=== PATIENT | male | born 1990 | race Two or more races ===

== ENCOUNTER 2018-04-21 07:08 | Inpatient (IN) | payer OTHER ==
[~2018-04-21] VITALS: Ht 157.5 cm; Wt 69.0 kg
[2018-04-21 07:16] VITALS: Ht 157.5 cm; Wt 69.0 kg
[2018-04-21 08:17] LABS: BASOPHIL % 0.2 % (0-2); PLATELET COUNT 213 x10^3mcL (130-400); RED CELL DISTRIBUTION WIDTH 12.4 % (11.5-14.5)
[2018-04-21 08:48] LABS: CARBON DIOXIDE 29.8 mmol/L (21-32); CHLORIDE SERUM 103 mmol/L (98-107); CREATININE SERUM 0.9 mg/dL (0.7-1.3); GFR1 > 60 mL/min; GLUCOSE SERUM 106 mg/dL (74-106); POTASSIUM SERUM 4.9 mmol/L (3.5-5.1); SODIUM SERUM 139 mmol/L (136-145)
[2018-04-21 08:53] LABS: ALBUMIN 3.9 g/dL (3.4-5.0); ALKALINE PHOSPHATASE 94 U/L (46-116); ALT/SGPT 28 U/L (16-63); AST/SGOT 14 U/L (15-37); BILIRUBIN TOTAL 0.51 mg/dL (0.20-1.00); CHOLESTEROL 181 mg/dL (<200); TOTAL PROTEIN, SERUM 7.8 g/dL (6.4-8.2)
[2018-04-21 13:06] VITALS: BP 142/88
[2018-04-21 13:13] LABS: CHOLESTEROL/HDL RATIO 4.2; MAGNESIUM 1.9 mg/dL (1.8-2.4); PHOSPHOROUS 3.7 mg/dL (2.5-4.9)
[2018-04-21 13:17] LABS: T3 TOTAL 1.1 ng/mL
[2018-04-21 13:21] LABS: FREE T4 0.97 ng/dL (0.76-1.46); FREE THYROXINE INDEX 2.4 ug/dL (1.4-4.5); T4(THYROXINE) 6.5 ug/dL (4.7-13.3)
[2018-04-21 14:25] LABS: microscopic required? NO
[2018-04-21 14:51] LABS: UA SPECIFIC GRAVITY <=1.005 (1.005-1.035); urine erythrocyte NEGATIVE (NEGATIVE)
[2018-04-21 14:56] LABS: AMPHETAMINE QUAL UR NONE DETECTED (See below)
[2018-04-21 17:55] VITALS: BP 131/86
[2018-04-21 19:30] VITALS: BP 129/82
[2018-04-21 21:02] VITALS: BP 121/76
[2018-04-22 06:13] VITALS: BP 117/68
[2018-04-22 09:09] VITALS: BP 117/68
[2018-04-22 10:06] VITALS: BP 118/71
[2018-04-22 14:19] VITALS: BP 138/89
== END 2018-04-22 17:01 | disposition home or self-care (01) | DRG 74 ==
LOC: EDSEX 07:08 → ED 07:08 → DU 10:23
PROVIDERS: Family Medicine; Specialist
DX: G90.8 Other disorders of autonomic nervous system (principal)
CPT/HCPCS: 83880; 84439; J7030; Q0092